=== PATIENT | male | born 1965 | race African-American/Black ===

== ENCOUNTER 2016-07-12 12:58 | Emergency (ER) | payer MEDICAID ==
[~2016-07-12] VITALS: Ht 175.3 cm; Wt 102.0 kg
[2016-07-12 13:22] VITALS: BP 135/93
[2016-07-12] MEDS ORDERED: BACITRACIN ZINC OINT UDPKT TOP ONE (13:45)
[2016-07-12] MEDS ORDERED: LIDOCAINE HCL 1% 20ML VIAL (Pyxis) INJ MC ONE (13:45)
== END 2016-07-12 15:09 | disposition home or self-care (01) ==
LOC: ER 12:58
DX: L02.512 Cutaneous abscess of left hand (principal); E11.9 Type 2 diabetes mellitus without complications; I10 Essential (primary) hypertension
CPT/HCPCS: 10060; 99283; J3490; Z7610

== ENCOUNTER 2016-08-28 10:36 | Emergency (ER) | payer MEDICAID ==
[~2016-08-28] VITALS: Ht 175.3 cm; Wt 103.0 kg
[2016-08-28 10:38] VITALS: BP 127/89
== END 2016-08-28 11:54 | disposition home or self-care (01) ==
LOC: ER 11:48
DX: M25.511 Pain in right shoulder (principal); R51 Headache; E11.9 Type 2 diabetes mellitus without complications; I10 Essential (primary) hypertension
CPT/HCPCS: 99281

== ENCOUNTER 2017-03-23 08:50 | Emergency (ER) | payer MEDICAID, OTHER ==
[~2017-03-23] VITALS: Ht 175.3 cm; Wt 104.0 kg
[2017-03-23 09:15] VITALS: BP 159/91
== END 2017-03-23 10:51 | disposition home or self-care (01) ==
LOC: ER 08:58
DX: H66.91 Otitis media, unspecified, right ear (principal)
CPT/HCPCS: 99283

== ENCOUNTER 2017-06-30 09:10 | Emergency (ER) | payer OTHER ==
[~2017-06-30] VITALS: Ht 172.7 cm; Wt 102.0 kg
[2017-06-30 11:56] LABS: BASOPHILS % 0.7 % (0.0-2.0); CHLORIDE 108 mEq/L (98-107); EOSINOPHILS % 1.8 % (0.0-5.0); HEMOGLOBIN. 14.4 g/dL (14.0-18.0); LYMPHOCYTES % 42.9 % (20.0-50.0); MEAN CORPUSCULAR HEMOGLOBIN 28.9 pg (28.0-32.0); MEAN CORPUSCULAR VOLUME 86.1 fL (80.0-94.0); MEAN PLATELET VOLUME 9.5 fl (7.4-10.4); MONOCYTES % 7.1 % (2.0-8.0); NEUTROPHILS % 47.5 % (40.0-76.0); PLATELET 193 x1000/uL (130-400); RED BLOOD CELL COUNT 4.99 mill/uL (4.7-6.1); RED CELL DISTRIBUTION WIDTH 14.1 % (11.6-14.6)
[2017-06-30 13:00] VITALS: BP 139/76
== END 2017-06-30 13:43 | disposition home or self-care (01) ==
LOC: ER 09:56
DX: H66.92 Otitis media, unspecified, left ear (principal); M79.644 Pain in right finger(s); R05 Cough; E11.9 Type 2 diabetes mellitus without complications; R03.0 Elevated blood-pressure reading, without diagnosis of hypertension
CPT/HCPCS: 29125; 36415; 71045; 73130; 80048; 85025; 99285

== ENCOUNTER 2017-10-13 15:58 | Emergency (ER) | payer MEDICAID, OTHER ==
[~2017-10-13] VITALS: Ht 170.2 cm; Wt 103.0 kg
[2017-10-13 16:24] VITALS: BP 121/80
[2017-10-13] MEDS ORDERED: METF-816 PO (16:29)
[2017-10-13] MEDS ORDERED: GLIP10TA10 PO (16:29)
== END 2017-10-13 18:24 | disposition left against medical advice (07) ==
LOC: ER 16:51
DX: R55 Syncope and collapse (principal); E11.9 Type 2 diabetes mellitus without complications
CPT/HCPCS: 99281

== ENCOUNTER 2017-10-15 08:32 | Emergency (ER) | payer OTHER ==
[~2017-10-15] VITALS: Ht 170.2 cm; Wt 103.0 kg
[~2017-10-15 08:32] MED LIST: GLIP10TA10 PO; METF-816 PO
[2017-10-15 09:08] VITALS: BP 125/86
== END 2017-10-15 10:13 | disposition left against medical advice (07) ==
LOC: ER 08:55 → SUPCPDRO 10-16 10:13
DX: R55 Syncope and collapse (principal); G45.9 Transient cerebral ischemic attack, unspecified; R03.0 Elevated blood-pressure reading, without diagnosis of hypertension; E11.9 Type 2 diabetes mellitus without complications; Z79.84 Long term (current) use of oral hypoglycemic drugs
CPT/HCPCS: 99281

== ENCOUNTER 2018-01-04 10:11 | Inpatient (IN) | payer OTHER ==
[~2018-01-04] VITALS: Ht 170.2 cm; Wt 96.2 kg
[2018-01-04] MEDS ORDERED: MORPHINE SULFATE 4 MG/ML CPJ (NOT FOR IM USE) IV STA (11:04)
[2018-01-04] MEDS ORDERED: ONDANSETRON 4MG ODT PO STA (11:04)
[2018-01-04] MEDS ORDERED: LABETALOL 5MG/ML SYR 20 MG/4 ML SYRINGE IV ONE (11:15)
[2018-01-04 11:25] LABS: CHLORIDE 102 mEq/L (98-107)
[2018-01-04 11:27] LABS: BASOPHILS % 0.4 % (0.0-2.0); EOSINOPHILS % 0.5 % (0.0-5.0); HEMATOCRIT. 43.5 % (42.0-52.0); HEMOGLOBIN. 14.6 g/dL (14.0-18.0); LYMPHOCYTES % 33.3 % (20.0-50.0); MEAN CORPUSCULAR HEMOGLOBIN 29.5 pg (28.0-32.0); MEAN CORPUSCULAR VOLUME 87.8 fL (80.0-94.0); MEAN PLATELET VOLUME 9.4 fl (7.4-10.4); MONOCYTES % 7.5 % (2.0-8.0); NEUTROPHILS % 58.3 % (40.0-76.0); PLATELET 218 x1000/uL (130-400); RED BLOOD CELL COUNT 4.95 mill/uL (4.7-6.1); RED CELL DISTRIBUTION WIDTH 14.1 % (11.6-14.6)
[2018-01-04 11:29] LABS: ETHANOL BLOOD < 10 mg/dL
[2018-01-04 11:30] LABS: INR 0.9; PARTIAL THROMBOPLASTIN TIME 25.8 sec (23.4-31.0); PROTHROMBIN TIME 9.5 sec (9.1-11.1)
[2018-01-04 11:32] LABS: LDL CHOLESTEROL 169 mg/dL (5-100)
[2018-01-04 11:33] LABS: CREATINE KINASE 177 IU/L (39-308)
[2018-01-04] MEDS ORDERED: ASPIRIN 325MG EC TABLET PO ONE (14:15)
[2018-01-04] MEDS ORDERED: IOHEXOL-350 100 ML BOTTLE ONE (15:21)
[2018-01-04 15:33] VITALS: BP 147/88
[2018-01-04 16:00] VITALS: BP 147/88
[2018-01-04] MEDS ORDERED: DEXTROSE 50% WATER 50ML SYRINGE IV PRN ×2 (16:00)
[2018-01-04] MEDS ORDERED: CLONIDINE 0.1MG TABLET PO PRN (16:00)
[2018-01-04] MEDS ORDERED: ACETAMINOPHEN 325MG TABLET PO PRN (16:00)
[2018-01-04] MEDS ORDERED: LISI10TA5 MT (16:01)
[2018-01-04] MEDS: MORPHINE SULFATE 4 MG/ML CPJ (NOT FOR IM USE) IV PRN ×2 (17:18→22:09)
[2018-01-04] MEDS: BLOOD SUGAR DIAGNOSTIC STRIP TEST SCH ×2 (17:18→21:17)
[2018-01-04] MEDS: INSULIN LISPRO 100 UNITS/ML SUBCUT SCH ×2 (17:18→21:16)
[2018-01-04] MEDS: CETIRIZINE 10MG TABLET PO SCH (19:47)
[2018-01-04] MEDS: HYDROCODONE/ACETAMINOPHEN 5/325MG TABLET PO PRN (19:47)
[2018-01-04 20:00] VITALS: BP_SYST 122; BP_SYST 128; BP_SYST 130; BP_DIAS 73; BP_DIAS 76; BP_DIAS 80
[2018-01-04] MEDS: FLUTICASONE PROPIONATE 50MCG/SPRAY BOTTLE BOTHNSTRLS SCH (21:17)
[2018-01-04] MEDS: LISINOPRIL 10MG TABLET PO SCH (21:17)
[2018-01-05] VITALS (7 sets, daily range): BP systolic 104–160; BP diastolic 66–88
[2018-01-05] MEDS: INSULIN LISPRO 100 UNITS/ML SUBCUT SCH ×3 (06:35→21:00)
[2018-01-05] MEDS: BLOOD SUGAR DIAGNOSTIC STRIP TEST SCH ×4 (06:35→20:44)
[2018-01-05] MEDS: FLUTICASONE PROPIONATE 50MCG/SPRAY BOTTLE BOTHNSTRLS SCH ×2 (08:57→18:33)
[2018-01-05] MEDS: LISINOPRIL 10MG TABLET PO SCH ×2 (08:57→20:44)
[2018-01-05] MEDS: CETIRIZINE 10MG TABLET PO SCH (08:57)
[2018-01-05] MEDS: HYDROCODONE/ACETAMINOPHEN 5/325MG TABLET PO PRN ×2 (09:07→20:44)
[2018-01-05] MEDS ORDERED: GLIPIZIDE 10MG TABLET PO SCH (13:15)
[2018-01-05] MEDS ORDERED: INSULIN GLARGINE UD 100 UNITS/ML SYR SUBCUT NR (13:30)
[2018-01-05] MEDS ORDERED: METFORMIN HCL 500MG TABLET PO SCH (17:40)
[2018-01-05] MEDS: MORPHINE SULFATE 4 MG/ML CPJ (NOT FOR IM USE) IV PRN (18:33)
[2018-01-05] MEDS ORDERED: CETI10CA2 PO (21:15)
[2018-01-05] MEDS ORDERED: HYDR-4001 MT (21:16)
[2018-01-05] MEDS ORDERED: FLUT9.9S BOTHNSTRLS (21:20)
== END 2018-01-05 22:40 | disposition home or self-care (01) | DRG 54 ==
LOC: ER 11:10 → 8WST 12:01 → EDBEDREQ 12:08 → EDBEDREQTM 12:08 → ENRESERV 12:46
PROVIDERS: ADMIT Internal Medicine; ATTEND Internal Medicine
DX: G43.909 Migraine, unspecified, not intractable, without status migrainosus (principal); E11.65 Type 2 diabetes mellitus with hyperglycemia; H53.2 Diplopia; I10 Essential (primary) hypertension; J32.9 Chronic sinusitis, unspecified; Z79.899 Other long term (current) drug therapy
CPT/HCPCS: 36415; 70450; 70496; 70551; 71045; 80053; 82550; 82962; 83036; 83690; 83721; 83880; 84484; 85025; 85610; 85651; 85730; 93005; 96374; 96375; 99291; G0482; J1815; J2270; J3490; Q0162; Q9967